=== PATIENT | female | born 2000 | race Hispanic/Latino ===

== ENCOUNTER 2022-04-09 00:11 | Emergency (ER) | payer OTHER ==
[2022-04-09] MEDS ORDERED: Ketorolac Tromethamine 30 MG/ML VIAL ONE (00:26)
[2022-04-09 00:55] LABS: Hemoglobin 13.7 g/dL (12.0-15.5); Mean Corpuscular HGB CONC 35.1 g/dL (32.0-36.0); Mean Corpuscular Hemoglobin 30.6 pg (27.0-33.0); Mean Corpuscular Volume 87.1 fl (81.6-98.3); Platelet Count 374 10x3/uL (150-450); RBC Distribution Width 11.9 % (11.5-14.5); Red Blood Cell (RBC) Count 4.48 10x6/uL (3.90-5.03); White Blood Cell (WBC) Count 13.9 10x3/uL (3.5-10.5)
[2022-04-09 01:04] LABS: BHCG - Serum Negative (NEGATIVE); Pregs Control Background? CLEAR/WHITE (CLR/WHITE); Pregs Control Bar Appear? YES (CONTROL BAR)
[2022-04-09 01:08] LABS: ALT (SGPT) 13 U/L (8-55); AST (SGOT) 12 U/L (5-30); Alkaline Phosphatase 68 U/L (40-100); Anion Gap 15 mmol/L (10-20); BUN (Urea Nitrogen) 15 mg/dL (8.4-21.0); Bilirubin, Total 0.4 mg/dL (0.2-1.2); Calc. Creatinine Clearance 0 mL/min (70-130); Calcium 9.5 mg/dL (7.8-10.44); Carbon Dioxide 22 mmol/L (22-29); Chloride 107 mmol/L (98-107); Estimated GFR 104; Globulin 3.3 g/dL (2.4-3.5); Glucose 91 mg/dL (70-105); Potassium 3.8 mmol/L (3.5-5.1); Protein, Total 7.3 g/dL (6.0-8.3); Sodium 140 mmol/L (136-145)
[2022-04-09 01:33] LABS: MDiff Complete? YES
[2022-04-09 01:36] LABS: Band 9 % (5-11); Lymphocytes 31 % (28-48); Monocytes 5 % (0-4); Neutrophil 52 % (31-61); Platelet Morphology Comment Appears Adequate; Reactive Lymphocytes 2 % (0-10)
[2022-04-09 01:37] LABS: RBC Morphology Normal
[2022-04-09] MEDS ORDERED: predniSONE 20 MG TAB ONE (01:47)
[2022-04-09] MEDS ORDERED: Cyclobenzaprine 10 MG TAB ONE (01:51)
== END 2022-04-09 02:12 | disposition home or self-care (01) ==
LOC: CSHERS 00:11
DX: R07.9 Chest pain, unspecified (principal); R06.00 Dyspnea, unspecified
CPT/HCPCS: 71045; 80053; 84484; 84703; 85025; 93005; 96374; J1885; J7512